=== PATIENT | female | born 1940 | race African-American/Black ===

== ENCOUNTER 2018-11-15 19:31 | Inpatient (IN) | payer MEDICAID, MEDICARE, OTHER ==
[~2018-11-15] VITALS: Ht 165.1 cm; Wt 68.0 kg
[2018-11-15] MEDS ORDERED: SODIUM CHLORIDE 0.9% 1,000 ML IV ONE (21:07)
[2018-11-15] MEDS ORDERED: ONDANSETRON HCL 4MG/2ML INJ IV STA (21:07)
[2018-11-15 21:44] LABS: BASOPHILS % 0.8 % (0.0-2.0); EOSINOPHILS % 0.1 % (0.0-5.0); HEMATOCRIT. 23.8 % (36.0-48.0); HEMOGLOBIN. 7.8 g/dL (12.0-16.0); LYMPHOCYTES % 14.3 % (20.0-50.0); MEAN CORPUSCULAR HEMOGLOBIN 34.1 pg (28.0-32.0); MEAN CORPUSCULAR VOLUME 103.4 fL (81.0-99.0); MEAN PLATELET VOLUME 6.9 fl (7.4-10.4); MONOCYTES % 7.9 % (2.0-8.0); NEUTROPHILS % 76.9 % (40.0-76.0); PLATELET 181 x1000/uL (130-400)
[2018-11-15 21:52] LABS: CHLORIDE 101 mEq/L (98-107)
[2018-11-15 21:54] LABS: INR 1.2; PROTHROMBIN TIME 12.2 sec (9.1-11.1)
[2018-11-15] MEDS ORDERED: POTASSIUM CHLORIDE INJ 40 MEQ in DEXT 5% WATER 250 ML IV SCH (22:30)
[2018-11-16 02:19] LABS: CLARITY URINE CLOUDY (CLEAR); COLOR URINE DARK YELLOW (YELLOW); KETONES URINE TRACE (NEGATIVE); LEUKOCYTE ESTERASE URINE 1+ (NEGATIVE); NITRITE URINE NEGATIVE (NEGATIVE); OCCULT BLOOD URINE NEGATIVE (NEGATIVE); PH URINE 5.5 (4.5-8.0); PROTEIN URINE NEGATIVE (NEGATIVE); SPECIFIC GRAVITY URINE 1.017 (1.005-1.030)
[2018-11-16] MEDS ORDERED: IPRATROPIUM/ALBUTEROL 0.5-3(2.5)MG/3ML NEB INH PRN (08:45)
[2018-11-16] MEDS ORDERED: GUAIFENESIN 200MG/10ML SUGAR FREE UDC PO PRN (08:45)
[2018-11-16] MEDS ORDERED: NA PHOS,M-B/NA PHOS,DI-BA ENEMA 118ML PR PRN (08:45)
[2018-11-16] MEDS ORDERED: MAGNESIUM/ALUMINUM HYDROXIDE/SIMETHICONE 30ML UDC PO PRN (08:45)
[2018-11-16] MEDS ORDERED: ACETAMINOPHEN 325MG TABLET PO PRN (08:45)
[2018-11-16] MEDS ORDERED: DIPHENHYDRAMINE 50MG/ML VIAL IV PRN (08:45)
[2018-11-16] MEDS ORDERED: ONDANSETRON HCL 4MG/2ML INJ IV PRN (08:45)
[2018-11-16] MEDS ORDERED: CLONIDINE 0.1MG TABLET PO PRN (08:45)
[2018-11-16] MEDS ORDERED: ACETAMINOPHEN 650MG SUPP PR PRN (08:45)
[2018-11-16] MEDS ORDERED: ACETAMINOPHEN 650MG/20.3ML UDC GT PRN (08:45)
[2018-11-16] MEDS ORDERED: HYDROCODONE/ACETAMINOPHEN 5/325MG TABLET PO PRN (08:45)
[2018-11-16] MEDS ORDERED: DOCUSATE SODIUM 100MG CAPSULE PO PRN (08:45)
[2018-11-16 13:59] LABS: BASOPHILS % 0.8 % (0.0-2.0); EOSINOPHILS % 0.5 % (0.0-5.0); LYMPHOCYTES % 16.3 % (20.0-50.0); MEAN CORPUSCULAR HEMOGLOBIN 33.5 pg (28.0-32.0); MEAN CORPUSCULAR VOLUME 101.9 fL (81.0-99.0); MONOCYTES % 10.9 % (2.0-8.0); NEUTROPHILS % 71.5 % (40.0-76.0); PLATELET 161 x1000/uL (130-400); RED BLOOD CELL COUNT 2.02 mill/uL (4.2-5.4); RED CELL DISTRIBUTION WIDTH 18.4 % (11.6-14.6)
[2018-11-16 14:06] LABS: CHLORIDE 106 mEq/L (98-107)
[2018-11-16 14:11] LABS: HEMOGLOBIN. 6.8 g/dL (12.0-16.0)
[2018-11-16 14:12] LABS: HEMATOCRIT. 20.6 % (36.0-48.0); PHOSPHORUS 2.7 mg/dL (2.5-4.9)
[2018-11-16 14:13] LABS: LDL CHOLESTEROL 94 mg/dL (5-100)
[2018-11-16 14:14] LABS: HDL CHOLESTEROL 19 mg/dL (40-59)
[2018-11-16 14:18] LABS: CREATINE KINASE 604 IU/L (26-192); D-DIMER 14.71 mg/L FEU (<0.50); INR 1.3; PROTHROMBIN TIME 12.7 sec (9.1-11.1); T4 FREE 0.13 ng/dL (0.76-1.46)
[2018-11-16 14:19] LABS: CREATINE KINASE MB FRACTION 6.4 ng/mL (0.5-3.6)
[2018-11-16] MEDS ORDERED: POTASSIUM CHLORIDE 20MEQ TABLET SR PO NR (15:00)
[2018-11-16] MEDS: PANTOPRAZOLE SODIUM 40 MG/VIAL IV SCH (15:33)
[2018-11-16 17:15] VITALS: BP 102/62
[2018-11-16] MEDS ORDERED: MORPHINE SULFATE 4 MG/ML CPJ (NOT FOR IM USE) IV PRN (17:45)
[2018-11-16] MEDS ORDERED: POTASSIUM CHLORIDE 20MEQ TABLET SR PO SCH (18:00)
[2018-11-16] MEDS ORDERED: DEXTROSE 50% WATER 50ML SYRINGE IV PRN (18:00)
[2018-11-16 19:40] VITALS: BP 113/56
[2018-11-16 20:00] VITALS: BP 113/56
[2018-11-16] MEDS: INSULIN LISPRO 100 UNITS/ML SUBCUT SCH (21:00)
[2018-11-16] MEDS: BLOOD SUGAR DIAGNOSTIC STRIP TEST SCH (21:11)
[2018-11-16] MEDS: CEFTRIAXONE 1 G PREMIX 50 ML IV SCH (21:15)
[2018-11-16] MEDS: SODIUM CHLORIDE 0.9% INJ 3ML FLUSH IVF SCH (21:15)
[2018-11-16] MEDS: SODIUM CHLORIDE 0.9% 1,000 ML IV SCH (22:00)
[2018-11-16 23:49] VITALS: BP 94/51
[2018-11-16] MEDS: ACETYLCYSTEINE 200MG/ML 20% VIAL 4ML PO SCH (23:53)
[2018-11-16 23:55] VITALS: BP 94/51
[2018-11-17] VITALS (15 sets, daily range): BP systolic 93–143; BP diastolic 53–67
[2018-11-17] MEDS: SODIUM CHLORIDE 0.9% INJ 3ML FLUSH IVF SCH ×3 (06:23→22:06)
[2018-11-17 07:07] LABS: BASOPHILS % 0.8 % (0.0-2.0); EOSINOPHILS % 1.5 % (0.0-5.0); HEMATOCRIT. 24.3 % (36.0-48.0); LYMPHOCYTES % 13.9 % (20.0-50.0); MEAN CORPUSCULAR HEMOGLOBIN 34.8 pg (28.0-32.0); MEAN CORPUSCULAR VOLUME 101.1 fL (81.0-99.0); MEAN PLATELET VOLUME 6.8 fl (7.4-10.4); MONOCYTES % 14.8 % (2.0-8.0); PLATELET 143 x1000/uL (130-400); RED BLOOD CELL COUNT 2.41 mill/uL (4.2-5.4); RED CELL DISTRIBUTION WIDTH 17.3 % (11.6-14.6)
[2018-11-17 07:27] LABS: CHLORIDE 105 mEq/L (98-107)
[2018-11-17 07:28] LABS: HEMOGLOBIN. 8.4 g/dL (12.0-16.0)
[2018-11-17 07:41] LABS: HDL CHOLESTEROL 17 mg/dL (40-59); LDL CHOLESTEROL 87 mg/dL (5-100)
[2018-11-17 07:45] LABS: CREATINE KINASE MB FRACTION 12.7 ng/mL (0.5-3.6)
[2018-11-17] MEDS: BLOOD SUGAR DIAGNOSTIC STRIP TEST SCH ×4 (07:46→20:24)
[2018-11-17] MEDS: INSULIN LISPRO 100 UNITS/ML SUBCUT SCH ×4 (07:46→20:35)
[2018-11-17 07:52] LABS: CREATINE KINASE 1018 IU/L (26-192)
[2018-11-17] MEDS: PANTOPRAZOLE SODIUM 40 MG/VIAL IV SCH (08:34)
[2018-11-17] MEDS: ACETYLCYSTEINE 200MG/ML 20% VIAL 4ML PO SCH ×2 (09:00→20:53)
[2018-11-17] MEDS ORDERED: VANCOMYCIN HCL 500 MG/VIAL ONE (10:18)
[2018-11-17] MEDS ORDERED: BUPIVACAINE/EPINEPH/PF 0.25%/0.0005 10ML ONE (10:18)
[2018-11-17] MEDS ORDERED: PHYTONADIONE 10 MG/10 ML ORALSYR PO SCH (14:00)
[2018-11-17] MEDS ORDERED: IOHEXOL-350 100 ML BOTTLE ONE (14:28)
[2018-11-17] MEDS: SODIUM CHLORIDE 0.9% 1,000 ML IV SCH (14:40)
[2018-11-17 15:42] LABS: CLARITY URINE CLOUDY (CLEAR); COLOR URINE DARK YELLOW (YELLOW); KETONES URINE TRACE (NEGATIVE); LEUKOCYTE ESTERASE URINE 2+ (NEGATIVE); NITRITE URINE NEGATIVE (NEGATIVE); OCCULT BLOOD URINE 2+ (NEGATIVE); PROTEIN URINE TRACE (NEGATIVE); SPECIFIC GRAVITY URINE 1.018 (1.005-1.030)
[2018-11-17 16:29] LABS: *AMPHETAMINES SCREEN URINE NEGATIVE (NEGATIVE); *BARBITURATES SCREEN URINE NEGATIVE (NEGATIVE); *BENZODIAZEPINES SCREEN URINE NEGATIVE (NEGATIVE); CANNABINOID URINE SCREEN NEGATIVE (NEGATIVE); METHADONE URINE SCREEN NEGATIVE (NEGATIVE); OPIATES URINE SCREEN NEGATIVE (NEGATIVE); PHENCYCLIDINE URINE SCREEN NEGATIVE (NEGATIVE)
[2018-11-17 16:30] LABS: *COCAINE SCREEN URINE NEGATIVE (NEGATIVE)
[2018-11-17 17:12] LABS: CREATINE KINASE MB FRACTION 10.7 ng/mL (0.5-3.6)
[2018-11-17 17:17] LABS: T4 FREE 0.13 ng/dL (0.76-1.46)
[2018-11-17] MEDS: CEFTRIAXONE 1 G PREMIX 50 ML IV SCH (20:34)
[2018-11-17] MEDS: BUDESONIDE 0.5MG/2ML NEB HHN SCH (20:42)
[2018-11-18] VITALS: BP 101/72
[2018-11-18 00:28] LABS: HEMATOCRIT 25.8 % (36.0-48.0); HEMOGLOBIN 8.7 g/dL (12.0-16.0)
[2018-11-18 04:00] VITALS: BP 116/74
[2018-11-18] MEDS: BLOOD SUGAR DIAGNOSTIC STRIP TEST SCH ×4 (06:36→21:07)
[2018-11-18] MEDS: SODIUM CHLORIDE 0.9% INJ 3ML FLUSH IVF SCH ×3 (06:36→21:07)
[2018-11-18] MEDS: SODIUM CHLORIDE 0.9% 1,000 ML IV SCH (06:36)
[2018-11-18 07:10] LABS: BASOPHILS % 0.8 % (0.0-2.0); CHLORIDE 105 mEq/L (98-107); EOSINOPHILS % 1.1 % (0.0-5.0); HEMATOCRIT. 26.3 % (36.0-48.0); HEMOGLOBIN. 8.9 g/dL (12.0-16.0); LYMPHOCYTES % 16.4 % (20.0-50.0); MEAN CORPUSCULAR HEMOGLOBIN 33.4 pg (28.0-32.0); MEAN CORPUSCULAR VOLUME 98.6 fL (81.0-99.0); MEAN PLATELET VOLUME 6.9 fl (7.4-10.4); NEUTROPHILS % 69.7 % (40.0-76.0); PLATELET 114 x1000/uL (130-400); RED BLOOD CELL COUNT 2.67 mill/uL (4.2-5.4); RED CELL DISTRIBUTION WIDTH 17.3 % (11.6-14.6)
[2018-11-18 07:31] LABS: PHOSPHORUS 1.6 mg/dL (2.5-4.9)
[2018-11-18] MEDS: INSULIN LISPRO 100 UNITS/ML SUBCUT SCH ×4 (07:50→21:00)
[2018-11-18 08:00] VITALS: BP 129/55
[2018-11-18] MEDS: BUDESONIDE 0.5MG/2ML NEB HHN SCH (08:23)
[2018-11-18] MEDS: ACETYLCYSTEINE 200MG/ML 20% VIAL 4ML PO SCH ×2 (08:23→21:11)
[2018-11-18] MEDS: PANTOPRAZOLE SODIUM 40 MG/VIAL IV SCH (09:37)
[2018-11-18 12:00] VITALS: BP 130/56
[2018-11-18] MEDS ORDERED: LIDOCAINE HCL 1% 20ML VIAL (Pyxis) INJ ONE (14:38)
[2018-11-18] MEDS ORDERED: SODIUM BICARBONATE 4% (2.4MEQ) 5ML VIAL IV ONE (14:39)
[2018-11-18] MEDS ORDERED: BUDESONIDE 0.5MG/2ML NEB HHN SCH (18:00)
[2018-11-18 20:49] VITALS: BP 101/51
[2018-11-18] MEDS: NITROFURANTOIN 100MG M/M CAPSULE PO SCH (21:11)
[2018-11-18 22:00] LABS: INR 1.3; PROTHROMBIN TIME 12.9 sec (9.1-11.1)
[2018-11-19] MEDS: SODIUM CHLORIDE 0.9% 1,000 ML IV SCH
[2018-11-19 00:07] VITALS: BP 109/53
[2018-11-19 04:00] VITALS: BP 116/68
[2018-11-19] MEDS: SODIUM CHLORIDE 0.9% INJ 3ML FLUSH IVF SCH (05:52)
[2018-11-19] MEDS: BLOOD SUGAR DIAGNOSTIC STRIP TEST SCH (06:33)
[2018-11-19] MEDS: NITROFURANTOIN 100MG M/M CAPSULE PO SCH (07:55)
[2018-11-19] MEDS: INSULIN LISPRO 100 UNITS/ML SUBCUT SCH (07:57)
[2018-11-19 08:00] VITALS: BP 120/75
[2018-11-19 12:38] VITALS: BP 120/75
== END 2018-11-19 13:20 | disposition short-term general hospital (02) | DRG 871 ==
LOC: ER 19:31 → EDBEDREQDT 11-16 01:06 → EDBEDREQTM 11-16 01:06 → EDBEDREQ 11-16 01:06 → ENRESERV 11-16 16:20 → 6WST 11-16 17:35 → UNDODISIN 11-19 10:48
PROVIDERS: ADMIT Family Medicine; ATTEND Family Medicine
PROC: 30233N1 Transfusion of Nonautologous Red Blood Cells into Peripheral Vein, Percutaneous Approach (ICD-10-PCS; 2018-11-16)
PROC: 30233N1 Transfusion of Nonautologous Red Blood Cells into Peripheral Vein, Percutaneous Approach (ICD-10-PCS; 2018-11-17)
PROC: 0W9G3ZZ Drainage of Peritoneal Cavity, Percutaneous Approach (ICD-10-PCS; principal; 2018-11-18)
DX: A41.9 Sepsis, unspecified organism (principal); J96.00 Acute respiratory failure, unspecified whether with hypoxia or hypercapnia; E43 Unspecified severe protein-calorie malnutrition; N17.0 Acute kidney failure with tubular necrosis; S72.401A Unspecified fracture of lower end of right femur, initial encounter for closed fracture; R18.8 Other ascites; N39.0 Urinary tract infection, site not specified; K76.6 Portal hypertension; I85.00 Esophageal varices without bleeding; M62.82 Rhabdomyolysis; E87.2 Acidosis; D68.9 Coagulation defect, unspecified; I42.9 Cardiomyopathy, unspecified; K74.60 Unspecified cirrhosis of liver; R16.0 Hepatomegaly, not elsewhere classified; D64.9 Anemia, unspecified; E87.6 Hypokalemia; E11.22 Type 2 diabetes mellitus with diabetic chronic kidney disease; B19.20 Unspecified viral hepatitis C without hepatic coma; I86.4 Gastric varices; I35.0 Nonrheumatic aortic (valve) stenosis; D69.6 Thrombocytopenia, unspecified; R07.9 Chest pain, unspecified; B96.20 Unspecified Escherichia coli [E. coli] as the cause of diseases classified elsewhere; Z16.12 Extended spectrum beta lactamase (ESBL) resistance; Z96.651 Presence of right artificial knee joint; X08.8XXD Exposure to other specified smoke, fire and flames, subsequent encounter; I12.9 Hypertensive chronic kidney disease with stage 1 through stage 4 chronic kidney disease, or unspecified chronic kidney disease; K80.20 Calculus of gallbladder without cholecystitis without obstruction; W18.30XA Fall on same level, unspecified, initial encounter; K57.30 Diverticulosis of large intestine without perforation or abscess without bleeding; J44.9 Chronic obstructive pulmonary disease, unspecified; I48.91 Unspecified atrial fibrillation; R91.8 Other nonspecific abnormal finding of lung field; N18.9 Chronic kidney disease, unspecified; Z96.641 Presence of right artificial hip joint; Z90.710 Acquired absence of both cervix and uterus; Z92.3 Personal history of irradiation; Z87.891 Personal history of nicotine dependence; Z85.118 Personal history of other malignant neoplasm of bronchus and lung; Y93.89 Activity, other specified; Y92.89 Other specified places as the place of occurrence of the external cause; Y99.8 Other external cause status; Z68.25 Body mass index [BMI] 25.0-25.9, adult
CPT/HCPCS: 36415; 36430; 49083; 71045; 71250; 71275; 73552; 73562; 74176; 78582; 80061; 80305; 82550; 82553; 82570; 82962; 83036; 83605; 83735; 83880; 84100; 84156; 84300; 84439; 84443; 84484; 85014; 85018; 85379; 86850; 86900; 86920; 87077; 87186; 93005; 93306; 93970; 93971; 94640; 96365; 96366; 96375; 99285; A9558; C9113; J0171; J0696; J1815; J2270; J2405; J3370; J3430; J3480; J3490; J7030; J7040; J7050; J7060; J7608; J7620; J7626; P9016; Q9967; A4315